=== PATIENT | female | born 1985 | race Caucasian/White ===

== ENCOUNTER → 2020-09-03 | Outpatient (CLI) | payer BC ==
--- NOTE | 2020-09-03 11:15 | MM ---
Reason for exam: screening (asymptomatic). Baseline mammogram. History: Family history of breast cancer in paternal aunt at age 40. Retro-pectoral silicone gel implants in both breasts, March 2015. Took hormonal contraceptives for 10 years. Physical Findings: Nurse did not find any significant physical abnormalities on exam. MG 3D Screen Mammo Imp/Cad Bilateral CC, MLO, and ID view(s) were taken. The breast tissue is extremely dense which could obscure a lesion on mammography. These results were verbally communicated with the patient and result sheet given to the patient on 09/03/20. ASSESSMENT: Negative, BI-RAD 1 RECOMMENDATION: Routine screening mammogram of both breasts at age 39.
== END | disposition home or self-care (01) ==
LOC: RADMAMWWP 10:09
PROVIDERS: ATTEND Obstetrics & Gynecology
DX: Z12.31 Encounter for screening mammogram for malignant neoplasm of breast (principal); Z80.3 Family history of malignant neoplasm of breast
CPT/HCPCS: 77063; 77067

== ENCOUNTER → 2020-11-29 | Outpatient (CLI) | payer BC ==
[2020-11-29 09:05] LABS: Basophils % (A) 1 %; Eosinophils # (A) 0.1 k/uL (0-0.7); Eosinophils % (A) 2 %; HCT 46.5 % (34.0-46.0); HGB 15.4 gm/dL (11.4-16.0); Lymphocytes # (A) 1.2 k/uL (1.0-4.8); Lymphocytes % (A) 32 %; MCH 31.8 pg (25.0-35.0); MCHC 33.2 g/dL (31.0-37.0); MCV 95.7 fL (80.0-100.0); Mean Platelet Volume 8.4; Monocytes # (A) 0.2 k/uL (0-1.0); Monocytes % (A) 6 %; Neutrophils # (A) 2.1 k/uL (1.3-7.7); Neutrophils % (A) 57 %; Platelet Count 198 k/uL (150-450); RBC 4.86 m/uL (3.80-5.40); RDW 12.2 % (11.5-15.5); WBC 3.7 k/uL (3.8-10.6)
[2020-11-29 09:21] LABS: African American GFR (CKD) >90 (>60 ml/min/1.73 sqM); Anion Gap 6 mmol/L; Blood Urea Nitrogen 12 mg/dL (7-17); Carbon Dioxide 29 mmol/L (22-30); Chloride 102 mmol/L (98-107); Glucose 103 mg/dL (74-99); Non-African American GFR(CKD) >90 (>60 ml/min/1.73 sqM); Potassium 5.4 mmol/L (3.5-5.1); Sodium 137 mmol/L (137-145)
== END | disposition home or self-care (01) ==
LOC: LABPAT 08:39
PROVIDERS: ATTEND Obstetrics & Gynecology
DX: Z01.812 Encounter for preprocedural laboratory examination (principal); N94.6 Dysmenorrhea, unspecified; N81.4 Uterovaginal prolapse, unspecified
CPT/HCPCS: 36415; 80051; 82565; 82947; 84520; 85025; 87086

== ENCOUNTER 2020-12-09 07:12 | Day surgery (SDC) | payer BC ==
[2020-12-04 12:09] VITALS: BMI 22.8
--- NOTE | 2020-12-05 14:04 | HP ---
HISTORY AND PHYSICAL DATE OF SURGERY: 12/09/2020 This is a 35-year-old white female, 2, para 1-0-1-1, who presents requesting vaginal hysterectomy for a longstanding history of dysmenorrhea. Recent sonogram is revealing evidence of adenomyosis of the uterus. The patient previously had an endometrial ablation in 2017 but continues to have severe cyclic pain. The plan is to have ovaries remain in situ, although patient does agree to oophorectomy if they appear unusual to inspection. All risks and benefits of the procedure have been discussed in detail. PAST MEDICAL HISTORY: Past medical history is significant for asthma, PMS, HPV infection in the past. She also has colon or bowel trouble, nonspecific. PAST SURGICAL HISTORY: D and C for missed AB, breast augmentation, endometrial biopsy, hysteroscopy and NovaSure endometrial ablation, tubal ligation, wisdom teeth extracted, tonsillectomy. CURRENT MEDICATIONS: Anusol HC topical cream to be used as needed, Colace 100 mg daily. ALLERGIES: ALLERGIES include the FLU SHOT, to which she reports a rash and hives, SULFA ANTIBIOTICS, to which she reports a rash and hives. FAMILY HISTORY: Significant for anxiety and depression, breast cancer, diverticulosis, hypothyroidism, asthma. REPRODUCTIVE HISTORY: Normal spontaneous vaginal delivery in 2016 of live-born female , unremarkable. SOCIAL HISTORY: Two to three drinks of alcohol weekly, 2 cups of coffee daily. Patient has never been a tobacco smoker and denies alcohol or drug use. She is and exercises regularly. PHYSICAL EXAMINATION: Patient is 5 feet 8 inches, 152 pounds, blood pressure 124/68, BMI 23. HEENT exam reveals no thyromegaly, good dentition, no obvious lymphadenopathy. CHEST: Clear in all grubbs anteriorly and posteriorly. Cardiac exam reveals regular rate and rhythm with no murmur, click or rubs. ABDOMEN: Soft, nontender. No organosplenomegaly. Active bowel sounds. Breasts are bilaterally symmetric. No skin dimpling, nipple discharge or axillary adenopathy. Pelvic exam reveals a multiparous cervix, small anteverted uterus, negative adnexa bilaterally. Rectal exam reveals small external hemorrhoids. Extremities reveal good peripheral pulses, good range of motion, no edema. IMPRESSION: Longstanding dysmenorrhea, cyclic, with sonographic evidence of adenomyosis. Patient requesting vaginal hysterectomy. PLAN: We will proceed with vaginal hysterectomy. Spinal with Duramorph is encouraged. Risks of surgery to include bleeding, infection, damage or harm to the bladder, ureters or bowel are all discussed. The risks of anesthesia are also reviewed. All questions answered. The [employer] pamphlet on this procedure had been given to the patient and reviewed in entirety. I believe she understands our discussion with no reservation or question. MMODL / IJN: [id number] /
[~2020-12-09 07:12] MED LIST: DEXAMETHASONE SOD PHOSPHATE 4 MG/ML 1 ML VIAL IV ONE; HYDROmorphone 0.5 MG/0.5 ML SYRINGE IVP PRN; LIDOCAINE 1% (10MG/ML) FOR IV START INTRADERMA PRN; ONDANSETRON 4 MG/2 ML VIAL IVP ONE; SCOPOLAMINE 1.5MG/72HR PATCH TRANSDERM ONE
[2020-12-09 08:11] LABS: Glucose,Whole Blood 100 mg/dL (75-99)
[2020-12-09] MEDS: LACTATED RINGERS 1,000 ML IV SCH ×2 (08:15→18:57)
[2020-12-09] MEDS ORDERED: MIDAZOLAM 2 MG/2 ML VIAL IVP ONE (08:40)
[2020-12-09] MEDS ORDERED: GLYCOPYRROLATE 0.2 MG/ML 2 ML VIAL ONE (09:07)
[2020-12-09] MEDS ORDERED: NEOSTIGMINE 1 MG/ML 10 ML VIAL ONE (09:07)
[2020-12-09] MEDS ORDERED: MORPHINE SULFATE (PF) 0.3 MG/0.3 ML SYR ONE (09:07)
[2020-12-09] MEDS ORDERED: SUCCINYLCHOLINE CHLORIDE 100 MG/5 ML SYR IV ONE (09:07)
[2020-12-09] MEDS ORDERED: ROCURONIUM 10 MG/ML (5 ML VIAL) IV ONE (09:07)
[2020-12-09] MEDS ORDERED: fentaNYL (PF) 50 MCG/ML 2 ML AMP ONE (09:07)
[2020-12-09] MEDS ORDERED: diphenhydrAMINE 50 MG/ML 1 ML VIAL ONE ×2 (09:07→10:45)
[2020-12-09] MEDS ORDERED: PROPOFOL 10 MG/ML 20 ML VIAL IV ONE (09:07)
[2020-12-09] MEDS ORDERED: LIDOCAINE 1% INJ 10MG/ML (20 ML MDV) ONE (09:07)
[2020-12-09] MEDS ORDERED: MIDAZOLAM 2 MG/2 ML VIAL ONE (09:07)
[2020-12-09] MEDS ORDERED: KETOROLAC 15 MG/ML 1 ML VIAL ONE (09:07)
[2020-12-09] MEDS ORDERED: VASOPRESSIN 20 UNIT/ML 1 ML VIAL SQ ONE ×2 (09:30)
[2020-12-09] MEDS ORDERED: BACITRACIN ZINC 500 UNIT/GM OINT 28.4 GM TUBE TOPICAL ONE ×2 (09:34→09:52)
[2020-12-09] MEDS ORDERED: KETOROLAC 15 MG/ML 1 ML VIAL IVP PRN (10:18)
[2020-12-09] MEDS ORDERED: ZOLPIDEM 5 MG TAB PO PRN (10:18)
[2020-12-09] MEDS ORDERED: IBUPROFEN 600 MG TAB PO PRN (10:18)
--- NOTE | 2020-12-09 10:18 | P.OP ---
Date of Procedure: 12/09/20 Preoperative Diagnosis: Severe dysmenorrhea Postoperative Diagnosis: Normal-appearing ovaries bilaterally Procedure(s) Performed: Vaginal hysterectomy Anesthesia: GETA, malik Surgeon: Faith Cummins Stamp Clerk #1: Janny Osborn Estimated Blood Loss (ml): 50 IV fluids (ml): 500 Urine output (ml): 300 Pathology: other (Cervix and uterus) Condition: stable Disposition: PACU Operative Findings: Normal-appearing ovaries bilaterally Description of Procedure: Patient is brought to the operating suite where a spinal with Duramorph is administered. She's placed in the dorsal lithotomy position and then general anesthesia is given. Antibiotics given. The appropriate timeout is performed to assure proper patient and procedural identification. Urine hCG is negative. The cervix, perineum, and lower abdomen are all prepped and draped in usual sterile fashion. Bladder is drained for approximately 300 mL of clear yellow urine. Weighted speculum was placed into the vagina. Anterior lip of the cervix is grasped with a double-tooth tenaculum. Cervix is injected circumferentially with dilute Pitressin solution, 10 mL total. A [place] blade scalpel is used to incise the mucosa circumferentially with a V positioning at 6:00. Sponge rolled finger is used to keep the mucosa swept well from the operative field at all times, to avoid bladder and/or ureteral injury. Peritoneum is entered at 6:00 with a Metzenbaum scissors, suture tied with 2-0 Vicryl, and held with a hemostat. Large billed speculum was then placed into the peritoneal cavity. The right uterosacral ligament is identified, clamped cut and suture ligated. It is held laterally with a hemostat. Same procedure is carried out contralaterally. Again the mucosa is at all times swept from the operative fie ld. Uterine vasculature is identified, clamped cut and suture ligated. Please note that 0 Vicryl sutures used for the entire remaining portion of the hysterectomy. 2 additional pedicles are taken superior to the vessels bilaterally. The anterior peritoneum was entered at 12:00 with a Metzenbaum scissor. Uterus is "walked out" posteriorly. Kay clamps are used across the final pedicles. Cervix and uterus are now removed and sent to pathology for evaluation. These pedicles are suture tied with 0 Vicryl in a Juan José stitch, flashed, and retied for excellent hemostasis. All pedicles are noted to be hemostatically intact. The speculum was switched to the shallow speculum and the 2-0 Vicryl suture at 6:00 is brought around in a pursestring fashion to close the peritoneum. The held uterosacral cardinal ligament complex stitches are brought across contralaterally to incorporate the opposite stitch as well as vaginal mucosa. 3 additional [id number] sutures are used in the vaginal mucosa for final cuff closure. Boucher catheter is placed in the urine is clear. All sponge needle and enhancement counts are correct. Vagina is packed with one-inch iodophor gauze with basic tracing. Patient is brought back to the recovery room in excellent condition with stable vital signs including blood pressure 95/54, pulse 82, 100% O2 saturation.
[2020-12-09] MEDS ORDERED: diphenhydrAMINE 50 MG/ML 1 ML VIAL IVP ONE (10:46)
[2020-12-09 10:54] LABS: Glucose,Whole Blood 134 mg/dL (75-99)
[2020-12-09] MEDS ORDERED: fentaNYL (PF) 50 MCG/ML 2 ML AMP IVP ONE (10:54)
[2020-12-09] MEDS ORDERED: LACTATED RINGERS 1,000 ML IV ONE (10:55)
[2020-12-09] MEDS ORDERED: ONDANSETRON 4 MG/2 ML VIAL IVP PRN (14:37)
--- NOTE | 2020-12-09 16:03 | P.ANPRN ---
Procedure Note - Anesthesia - Epidural/Spinal Spinal Date of Procedure: 12/09/20 Procedure Start Time: 08:11 Procedure Stop Time: 08:20 Location of Patient: OR Indication: Acute Post-Operative Pain Sedation Type: Sedate with meaningful contact maintained Preparation: Sterile Prep Number of Attempts: 1 Position: Sitting Catheter: None Needle Guage: 25 Injectate: Other (Duramorph 0.3mg & Fentanyl 25mcg) Narrative: Sterile prep and drape. L3-4 interspace, with a midline approach. 25g tuohy needle. Clear, free flow of CSF noted. Blood Aspirated: No Pain Paresthesia on Injection Noted: No Events: Uneventful and Well Tolerated
--- NOTE | 2020-12-10 08:03 | P.DS ---
Providers Date of admission: 12/09/20 Expected date of discharge: 12/10/20 Attending physician: Faith Cummins Primary care physician: Beth David Hospital Course: This is a 35-year-old female who presented with severe dysmenorrhea, status post ablation, wishing vaginal hysterectomy. Please see admitting history and physical for details. Under my care yesterday she went through a vaginal hysterectomy. Vaginal packing and Boucher catheter replaced. She well intraoperatively with an estimated blood loss of 50 mL's. Spinal with Duramorph was placed. Please see dictated operative note for details. Ovaries left in situ as per patient's age and our discussion. Patient had emesis to the night, is feeling greatly improved this morning after Zofran. She is passing gas. There is only minimal vaginal drainage. No CVA tenderness. Abdomen is soft and nontender, active bowel sounds. Patient is judged to be in good condition for discharge home. She is tolerating food, ambulating, and is currently showering. She will follow-up with me in the office in 2 weeks. She is reminded no intercourse, tampons or douching. She will use [id number] Advil or Aleve, or Motrin as needed for pain. She will call with any fevers shakes or chills, foul smelling or bloody vaginal drainage, with any pain not alleviated by [id number] products, or indeed with any concerns. Assessment: Doing well postoperative day #1 Patient Condition at Discharge: Good Plan - Discharge Summary Discharge Rx Participant: No New Discharge Prescriptions: No Action Multivitamins, Thera [Multivitamin (formulary)] 1 tab PO DAILY Discharge Medication List Multivitamins, Thera [Multivitamin (formulary)] 1 tab PO DAILY 12/04/20 [History] Follow up Appointment(s)/Referral(s): Faith Cummins MD [STAFF PHYSICIAN] - 2 Weeks Patient Instructions/Handouts: *Surgery [facility] - Scopalamine Patch Instructions Discharge Disposition: HOME SELF-CARE
[2020-12-10 08:33] VITALS: BP 112/71; PULSE 74; RESP 16; TEMP 97.6
--- NOTE | 2020-12-10 09:32 | P.PN ---
Progress Note - Text Progress Note Date: 12/10/20 Patient seen in room at 0700 She is POD#1 TVH under GA/intrathecal duramorph for post-op pain management. Patient is doing very well. VAS 0/10 Denies any symptoms of headache, back pain and /or lower extremity weakness/paresthesias. Very happy with her anesthetic management. To be discharged to home today.
[2020-12-10] MEDS ORDERED: ACETAMINOPHEN TAB 325 MG TAB PO PRN (10:19)
[2020-12-10] MEDS ORDERED: SENNOSIDES-DOCUSATE SODIUM 1 EACH TAB PO STA (12:02)
== END 2020-12-10 12:50 | disposition home or self-care (01) ==
LOC: OR 07:12 → 4FBP 10:39 → OR 12-10 12:50
PROVIDERS: ATTEND Obstetrics & Gynecology
DX: N94.6 Dysmenorrhea, unspecified (principal); N80.0 Endometriosis of uterus; N81.4 Uterovaginal prolapse, unspecified; J45.909 Unspecified asthma, uncomplicated; K21.9 Gastro-esophageal reflux disease without esophagitis; Z88.2 Allergy status to sulfonamides
CPT/HCPCS: 58260; 81025; 86900; 86901; 84132; 86850; 88307; J2250; J1200; J1100; J2710; J0690; J2405; J2001; J2274; J3010; J1885; J0330; J2704; J1170